=== PATIENT | male | born 1960 | race Caucasian/White ===

== ENCOUNTER 2016-07-30 07:32 | Day surgery (SDC) | payer OTHER ==
[2016-07-30] MEDS ORDERED: ceFAZolin 2 GM/50 ML 50 ML IV ONE (07:37)
[2016-07-30] MEDS ORDERED: LACTATED RINGERS 1,000 ML IV ONE ×2 (07:43→10:30)
[2016-07-30] MEDS ORDERED: MIDAZOLAM 2 MG/2 ML VIAL IVP ONE (09:00)
[2016-07-30] MEDS ORDERED: KETOROLAC 30 MG/ML VIAL IVP ONE (09:00)
[2016-07-30] MEDS ORDERED: PROPOFOL 200 MG/20 ML VIAL IVP ONE (09:00)
[2016-07-30] MEDS ORDERED: LIDOCAINE-MPF 2% 5 ML VIAL IM ONE (09:00)
[2016-07-30] MEDS ORDERED: ONDANSETRON 4 MG/2 ML VIAL IVP ONE (09:00)
[2016-07-30] MEDS ORDERED: DEXAMETHASONE 4 MG/ML VIAL IVP ONE (09:00)
[2016-07-30] MEDS ORDERED: fentaNYL 100 MCG/2 ML VIAL IVP ONE (09:00)
[2016-07-30] MEDS ORDERED: BUPIVACAINE 0.5% PF 30 ML VIAL SUBQ ONE ×3 (09:52→10:40)
[2016-07-30] MEDS ORDERED: oxyCOD/ACETAMIN 5 MG/325 MG TABLET PO ONE (11:49)
== END 2016-07-30 07:33 | disposition home or self-care (01) ==
PROC: 0VBF0ZZ Excision of Right Spermatic Cord, Open Approach (ICD-10-PCS; 2016-07-30)
PROC: 0YU50JZ Supplement Right Inguinal Region with Synthetic Substitute, Open Approach (ICD-10-PCS; principal; 2016-07-30 08:30)
DX: K40.91 Unilateral inguinal hernia, without obstruction or gangrene, recurrent (principal); D17.6 Benign lipomatous neoplasm of spermatic cord; Z87.891 Personal history of nicotine dependence; N52.9 Male erectile dysfunction, unspecified; Z82.49 Family history of ischemic heart disease and other diseases of the circulatory system; Z80.0 Family history of malignant neoplasm of digestive organs; Z83.3 Family history of diabetes mellitus
CPT/HCPCS: 49520; 55520; A9270; C1781; J0690; J7120

== ENCOUNTER 2016-09-30 14:28 | Outpatient (CLI) | payer OTHER | END 2016-09-30 14:29 | disposition home or self-care (01) | DX: M25.522 Pain in left elbow (principal) ==

== ENCOUNTER 2018-06-10 11:49 | Outpatient (CLI) | payer BC ==
--- NOTE | 2018-06-10 13:21 | XRAY Report ---
Reason: ANTERIOR KNEE PAIN,LT KNEE Procedure Date: 06/10/2018 Accession Number: [id number] / [id number] Procedure: XR - Knee 3 View LT CPT Code: FULL RESULT: EXAM: LEFT KNEE RADIOGRAPHY EXAM DATE: 06/10/2018 11:56 AM. CLINICAL HISTORY: Anterior knee pain, left knee. COMPARISON: None. TECHNIQUE: 3 views. FINDINGS: Bones: Normal. No fractures or bone lesions. Joints: Normal. No effusion. No subluxations. Soft Tissues: Normal. No soft tissue swelling. IMPRESSION: No fracture or dislocation. RADIA
== END 2018-06-10 11:50 | disposition home or self-care (01) ==
LOC: DI 11:49
PROVIDERS: ATTEND Internal Medicine
DX: M25.562 Pain in left knee (principal)

== ENCOUNTER 2019-06-24 16:40 | Outpatient (CLI) | payer BC ==
--- NOTE | 2019-06-25 21:22 | XRAY Report ---
Reason: INGUINAL PAIN, PERSONAL HISTORY OF NICOTINE DEPEND Procedure Date: 06/24/2019 Accession Number: [id number] / [id number] Procedure: XR - Chest 2 View X-Ray CPT Code: 95348 Final Report FULL RESULT: EXAM: CHEST RADIOGRAPHY EXAM DATE: 06/24/2019 04:55 PM. CLINICAL HISTORY: INGUINAL PAIN, PERSONAL HISTORY OF NICOTINE DEPEND. COMPARISON: 06/23/2013 10:20 AM. TECHNIQUE: 2 views. FINDINGS: Lungs/Pleura: No focal opacities evident. No pleural effusion. No pneumothorax. Normal volumes. Mediastinum: Heart and mediastinal contours are unremarkable. Other: DJD spine IMPRESSION: No active cardiopulmonary disease RADIA
--- NOTE | 2019-06-26 10:36 | Ultrasound Report ---
Reason: INGUINAL PAIN Procedure Date: 06/24/2019 Accession Number: [id number] / [id number] Procedure: US - Pelvic Limited or F/U CPT Code: Final Report FULL RESULT: EXAM: INGUINAL ULTRASOUND EXAM DATE: 06/24/2019 05:30 PM. CLINICAL HISTORY: INGUINAL PAIN. COMPARISON: None. TECHNIQUE: Real-time sonographic imaging of the inguinal canals and vascular structures, including color-flow, was performed by the auger operator. Multiple industrial relations representative static images were saved for review. FINDINGS: Hernia: None identified with or without Valsalva. Soft Tissues: Normal. No fluid collections or adenopathy. Other: None. IMPRESSION: Normal. No inguinal hernia evident. RADIA
== END 2019-06-24 16:41 | disposition home or self-care (01) ==
LOC: DI 16:40
PROVIDERS: ATTEND Registered Nurse
DX: R10.2 Pelvic and perineal pain (principal); Z87.891 Personal history of nicotine dependence
CPT/HCPCS: 71046; 76857

== ENCOUNTER 2019-12-15 09:51 | Emergency (ER) | payer BC, OTHER ==
--- NOTE | 2019-12-15 10:16 | ED Physician Documentation ---
PD HPI Fall - Stated complaint Stated Complaint: Fall/Trauma - Chief complaint Chief Complaint: Trauma Ch/Bk - History obtained from History obtained from: Patient - History of Present Illness Mechanism of injury: Slipped Fall distance: Standing position, 10 to 15ft Where injury occurred: Work Timing - onset: Today Injury(ies) location: Head, Chest, Back, Right Upper Extremity Quality of pain: Pain Associated symptoms: Neck pain. No: LOC, AMS, Amnesia, Seizures, Ear drainage, Nasal drainage, Weakness, Paresthesias, Dyspnea, Nausea / vomiting, Hematemesis, Abdominal distension Symptoms improve with: Rest, Position Worsens with: Movement, Palpation Contributing factors: No: Anticoagulated Similar symptoms before: Has not had sx before Recently seen: Not recently seen - Additional information Additional information: Previously well 59-year-old male was up on a roof today doing some pressure washing when he slipped off of the roof. He tried to grab the Skylight and the gutter. on the way down he aimed for a Media hill, landed on his feet, fell onto his buttocks and struck the back of his head. He did not have any loss of consciousness with this. He did have some pain in his buttocks over the tailbone and has injured his right fifth digit. He is not able to fully flex and extend it feels it might be dislocated or broken. He states that he does not feel he was otherwise injured significantly with a fall and he drove himself up to the hospital. Review of Systems Constitutional: denies: Fever Eyes: denies: Decreased vision Ears: denies: Ear pain Nose: denies: Congestion Throat: denies: Sore throat Cardiac: denies: Chest pain / pressure, Palpitations Respiratory: denies: Dyspnea : denies: Dysuria Skin: denies: Rash Musculoskeletal: reports: Neck pain, Back pain, Extremity pain Neurologic: reports: Head injury. denies: Generalized weakness, Focal weakness, Numbness, Headache, LOC PD PAST MEDICAL HISTORY - Past Medical History Cardiovascular: None Respiratory: None Endocrine/Autoimmune: None GI: Hemorrhoids : Kidney stones HEENT: None Psych: None Musculoskeletal: None Derm: None, Other - Past Surgical History General: Colonoscopy, Other - Present Medications Home Medications: Ambulatory Orders Medication Instructions Recorded Confirmed Multivitamin [Multivitamins] 1 each PO DAILY 12/11/15 12/15/19 Vardenafil HCl [Levitra] 10 mg PO PRN PRN 07/29/16 12/15/19 Hydrocodone/Acetaminophen 1 - 2 each PO Q6H PRN #14 tablet 12/15/19 [Hydrocodon-Acetaminophen 5-325] - Allergies Allergies/Adverse Reactions: Allergies Allergy/AdvReac Type Severity Reaction Status Date / Time No Known Drug Allergies Allergy Verified 12/15/19 10:30 PD ED PE NORMAL - Vitals Vital signs reviewed: Yes (hypertensive ) - General General: Alert and oriented X 3, No acute distress, Well developed/nourished - HEENT HEENT: Atraumatic, PERRL, EOMI, Other (I am not able to palpate a hematoma or tender area) - Neck Neck: Supple, no meningeal sign, Other (midline bony tenderness is mild mid cervical spine patient in collar) - Cardiac Cardiac: RRR, No murmur - Respiratory Respiratory: No respiratory distress, Clear bilaterally, Other (no chest wall tenderness. ) - Abdomen Abdomen: Normal bowel sounds, Soft, Non tender, Non distended, No organomegaly - Back Back: No CVA TTP, No spinal TTP, Other (There is no lumbar point tenderness there is tenderness to the sacrum and coccyx. ) - Derm Derm: Normal color, No rash - Extremities Extremities: No edema, No calf tenderness / cord, Other (There is a deformity to the right fifth digit consistent with a dislocation at the PIPThis is reduced and the patient still has some reduced range of motion to the fifth digit he is able flex and extend at the PIP. 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, No motor deficit, No sensory def icit, Normal speech Eye Opening: Spontaneous Motor: Obeys Commands Verbal: Oriented GCS Score: 15 - Psych Psych: Normal mood, Normal affect Results - Vitals Vitals: Vital Signs - 24 hr 12/15/19 12/15/19 12/15/19 09:56 10:09 11:12 Temperature 36.6 C Heart Rate 58 L 58 L 64 Respiratory 16 12 12 Rate Blood Pressure 139/95 H 144/106 H 144/106 H O2 Saturation 98 100 99 12/15/19 12/15/19 12/15/19 11:53 13:00 13:21 Temperature 37.1 C Heart Rate 63 65 68 Respiratory 14 16 12 Rate Blood Pressure 122/91 H 127/89 H 127/86 H O2 Saturation 100 97 97 Oxygen O2 Source Room air - Rads (name of study) fingers Radiology: Prelim report reviewed (Impression: Minimally displaced fracture of the volar base of the fifth middle phalanx.), EMP read indepedently, See rad report ct cervical spine Radiology: Prelim report reviewed (Impression: Cervical spine CT no acute fracture. Straightening may be positional. Multi-level degenerative changes.), EMP read indepedently, See rad report CT head Radiology: Prelim report reviewed (Impression: Parenchyma no intraparenchymal hemorrhage. No evidence of mass, midline shift, or CT findings of infarction. Martínez-white differentiation is distinct.), EMP read indepedently, See rad report Sacrum and coccyx Radiology: Prelim report reviewed (Impression: Limited exam no definite fracture identified), EMP read indepedently (I found the film to degraded to make a reading), See rad report Procedures - Laceration (location) right 5th Length in cm: 1 Wound type: Flap, Superficial, Clean Neurovascular status: Sensory intact, Motor intact, Vascular intact Wound Preparation: Irrigated copiously NS, Wound explored, To the base Skin layer closure: Dermabond (with sureclose) Other: Patient tolerated well, No complications, Dressing applied, Tetanus booster given Complexity: Simple PD MEDICAL DECISION MAKING - ED course Complexity details: reviewed old records, reviewed results, re-evaluated patient, considered differential, d/w patient ED course: Previous well 59-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 He has a dislocation of the right fifth proximal interphalangeal joint which is reduced on physical examination. He has a chip fracture from the volar surface of the middle phalange. He has a laceration overlying the area which is area which is superficial. This is not an open fracture. The patient's finger is repaired with the use of sure close and this is tolerated well. He is placed into an ulnar gutter splint and given tordal 30mg IV Departure - Departure Disposition: 01 Home, Self Care Clinical Impression: Cervical strain, acute Qualifiers: Encounter type: initial encounter Qualified Code(s): S16.1XXA - Strain of muscle, fascia and tendon at neck level, initial encounter Contusion of coccyx Qualifiers: Encounter type: initial encounter Qualified Code(s): S30.0XXA - Contusion of lo wer back and pelvis, initial encounter Finger fracture, right Qualifiers: Encounter type: initial encounter Finger: little finger Fracture type: closed Phalanx: middle Fracture alignment: nondisplaced Qualified Code(s): S62.656A - Nondisplaced fracture of middle phalanx of right little finger, initial encounter for closed fracture Finger laceration Qualifiers: Encounter type: initial encounter Finger: little finger Damage to nail status: without damage Foreign body presence: without foreign body Laterality: right Qualified Code(s): S61.216A - Laceration without foreign body of right little finger without damage to nail, initial encounter Condition: Stable Instructions: ED Contusion Sacrum Coccyx, ED Fx Finger Closed, ED Sprain Strain Neck, ED Laceration Sure Close Follow-Up: [facility] [place] [Provider Group] Prescriptions: Hydrocodone/Acetaminophen [Hydrocodon-Acetaminophen 5-325] 1 - 2 each PO Q6H PRN #14 tablet PRN Reason: pain Forms: Activity restrictions Discharge Date/Time: 12/15/19 13:40
--- NOTE | 2019-12-15 11:41 | XRAY Report ---
Reason: 5th digit injury Procedure Date: 12/15/2019 Accession Number: [id number] / [id number] Procedure: XR - Hand 3 View RT CPT Code: Final Report FULL RESULT: EXAM: RIGHT HAND RADIOGRAPHY EXAM DATE: 12/15/2019 10:46 AM. CLINICAL HISTORY: 5th digit injury. Fall from roof with fifth digit pain. COMPARISON: ELBOW 3 VIEW RT 09/30/2016 2:52 PM. TECHNIQUE: 3 views. FINDINGS: Bones: Minimally displaced fracture at the volar base of the fifth digit middle phalanx. Joints: No subluxation. Soft Tissues: Soft tissue swelling about fifth digit. IMPRESSION: Minimally displaced fracture of the volar base of fifth digit middle phalanx. RADIA
--- NOTE | 2019-12-15 11:44 | XRAY Report ---
Reason: 12ft fall coccyx pain Procedure Date: 12/15/2019 Accession Number: [id number] / [id number] Procedure: XR - Sacrum/Coccyx CPT Code: Final Report FULL RESULT: EXAM: SACRUM AND COCCYX RADIOGRAPHY EXAM DATE: 12/15/2019 10:46 AM. HISTORY: 12ft fall. Coccyx pain. COMPARISONS: None. TECHNIQUE: 3 views. FINDINGS: Evaluation significantly limited by underpenetration on lateral view. Alignment: Within study limitations, the sacrum and coccyx are normally aligned. Bones: No definite fracture or bone lesion. Joints: Unremarkable. The sacroiliac joints and visualized hips are unremarkable. Soft Tissues: Unremarkable. IMPRESSION: Limited exam. No definite fracture identified. RADIA
--- NOTE | 2019-12-15 12:02 | CT Report ---
Reason: 12ft fall hit head Procedure Date: 12/15/2019 Accession Number: [id number] / [id number] Procedure: CT - HEAD WO CPT Code: Final Report FULL RESULT: EXAM: CT HEAD. CT SCAN OF THE CERVICAL SPINE. EXAM DATE: 12/15/2019 10:28 AM. CLINICAL HISTORY: 12ft fall. Hit head. Head and neck pain. COMPARISON: CERVICAL SPINE WO 12/15/2019 10:22 AM. TECHNIQUE: Noncontrast axial sections through the head and cervical spine. Reformats: Sagittal and coronal of the head, coronal and sagittal of the cervical spine. In accordance with CT protocol optimization, one or more of the following dose reduction techniques were utilized for this exam: automated exposure control, adjustment of mA and/or KV based on patient size, or use of iterative reconstructive technique. FINDINGS CT HEAD: Parenchyma: No intraparenchymal hemorrhage. No evidence of mass, midline shift, or CT findings of infarction. Martínez-white differentiation is distinct. Extraaxial Spaces: Normal for age. No subdural or epidural collections identified. Ventricles: Normal in size and position. Sinuses and Orbits: Imaged paranasal sinuses, orbits, and mastoids show no significant abnormality. Bones: No evidence of fracture or calvarial defect. Other: None. FINDINGS CT CERVICAL SPINE: Alignment: Straightening of cervical spine may be positional. No scoliosis. No spondylolisthesis. Bones: No acute fracture or bone lesion. Vertebral body heights are preserved. Dens is intact. Multilevel degenerative changes, worst at the C5-C6 and C6-C7 levels with disk space narrowing, endplate sclerosis, osteophyte formation, and facet hypertrophy causing varying degrees of mild to moderate neural foraminal stenosis. Musculature: Normal. No fatty atrophy. Other: The paravertebral and prevertebral soft tissues are unremarkable. The lung apices are clear. IMPRESSION: Head CT: No CT evidence of acute intracranial pathology. Cervical Spine CT: No acute fracture. Straightening may be positional. Multilevel degenerative changes. RADIA
--- NOTE | 2019-12-15 12:02 | CT Report ---
Reason: 12 ft fall hit head neck pain Procedure Date: 12/15/2019 Accession Number: [id number] / [id number] Procedure: CT - CERVICAL SPINE WO CPT Code: Final Report FULL RESULT: EXAM: CT HEAD. CT SCAN OF THE CERVICAL SPINE. EXAM DATE: 12/15/2019 10:28 AM. CLINICAL HISTORY: 12ft fall. Hit head. Head and neck pain. COMPARISON: CERVICAL SPINE WO 12/15/2019 10:22 AM. TECHNIQUE: Noncontrast axial sections through the head and cervical spine. Reformats: Sagittal and coronal of the head, coronal and sagittal of the cervical spine. In accordance with CT protocol optimization, one or more of the following dose reduction techniques were utilized for this exam: automated exposure control, adjustment of mA and/or KV based on patient size, or use of iterative reconstructive technique. FINDINGS CT HEAD: Parenchyma: No intraparenchymal hemorrhage. No evidence of mass, midline shift, or CT findings of infarction. Martínez-white differentiation is distinct. Extraaxial Spaces: Normal for age. No subdural or epidural collections identified. Ventricles: Normal in size and position. Sinuses and Orbits: Imaged paranasal sinuses, orbits, and mastoids show no significant abnormality. Bones: No evidence of fracture or calvarial defect. Other: None. FINDINGS CT CERVICAL SPINE: Alignment: Straightening of cervical spine may be positional. No scoliosis. No spondylolisthesis. Bones: No acute fracture or bone lesion. Vertebral body heights are preserved. Dens is intact. Multilevel degenerative changes, worst at the C5-C6 and C6-C7 levels with disk space narrowing, endplate sclerosis, osteophyte formation, and facet hypertrophy causing varying degrees of mild to moderate neural foraminal stenosis. Musculature: Normal. No fatty atrophy. Other: The paravertebral and prevertebral soft tissues are unremarkable. The lung apices are clear. IMPRESSION: Head CT: No CT evidence of acute intracranial pathology. Cervical Spine CT: No acute fracture. Straightening may be positional. Multilevel degenerative changes. RADIA
[2019-12-15] MEDS ORDERED: KETOROLAC 30 MG/ML VIAL IVP STA (12:09)
[2019-12-15] MEDS ORDERED: TETANUS/DIPHTHERIA/PERTUSSIS 0.5 ML SYRINGE IM ONE (12:39)
[2019-12-15 13:22] VITALS: BP 127/86
== END 2019-12-15 13:40 | disposition home or self-care (01) ==
LOC: ED 09:51
DX: S62.656A Nondisplaced fracture of middle phalanx of right little finger, initial encounter for closed fracture (principal); S63.286A Dislocation of proximal interphalangeal joint of right little finger, initial encounter; S61.216A Laceration without foreign body of right little finger without damage to nail, initial encounter; S16.1XXA Strain of muscle, fascia and tendon at neck level, initial encounter; S30.0XXA Contusion of lower back and pelvis, initial encounter; S50.811A Abrasion of right forearm, initial encounter; W17.89XA Other fall from one level to another, initial encounter; Y93.H9 Activity, other involving exterior property and land maintenance, building and construction; Y92.008 Other place in unspecified non-institutional (private) residence as the place of occurrence of the external cause; Y99.0 Civilian activity done for income or pay; Z23 Encounter for immunization
CPT/HCPCS: 12001; 26770; 70450; 72125; 72220; 90471; 99284

== ENCOUNTER 2020-12-27 09:31 | Day surgery (SDC) | payer OTHER ==
[2020-12-27] MEDS ORDERED: LACTATED RINGERS 1,000 ML IV ONE ×2 (09:48→11:04)
[2020-12-27] MEDS ORDERED: MIDAZOLAM 2 MG/2 ML VIAL ONE ×4 (10:09→10:24)
[2020-12-27] MEDS ORDERED: fentaNYL 250 MCG/5 ML VIAL ONE (10:09)
[2020-12-27 10:45] VITALS: BP 109/75
== END 2020-12-27 09:32 | disposition home or self-care (01) ==
LOC: SDS 09:31
PROVIDERS: ATTEND Surgery
DX: Z12.11 Encounter for screening for malignant neoplasm of colon (principal); K64.8 Other hemorrhoids; K64.4 Residual hemorrhoidal skin tags; Z86.010 Personal history of colon polyps
CPT/HCPCS: 45378; J3010; J7120

== ENCOUNTER 2021-12-14 10:13 | Outpatient (CLI) | payer OTHER ==
[2021-12-14 15:49] LABS: BASOPHILS % (AUTO) 0.5 %; EOSINOPHILS # (AUTO) 0.2 10^3/uL (0.0-0.7); EOSINOPHILS % (AUTO) 2.7 %; HCT - HEMATOCRIT 44.9 % (42.0-52.0); HGB - HEMOGLOBIN 15.2 g/dL (14.0-18.0); LYMPHOCYTES # (AUTO) 2.1 10^3/uL (1.5-3.5); LYMPHOCYTES % (AUTO) 36.5 %; MEAN CORPUSCULAR HEMOGLOBIN 31.9 pg (27.0-31.0); MEAN CORPUSCULAR HGB CONC 33.9 g/dL (32.0-36.0); MEAN CORPUSCULAR VOLUME 94.1 fL (80.0-94.0); MEAN PLATELET VOLUME 10.6 fL (7.4-11.4); MONOCYTES # (AUTO) 0.7 10^3/uL (0.0-1.0); MONOCYTES % (AUTO) 11.3 %; NEUTROPHILS # (AUTO) 2.8 10^3/uL (1.5-6.6); NEUTROPHILS % (AUTO) 48.8 %; PLT - PLATELET COUNT 223 10^3/uL (130-450); RED BLOOD COUNT 4.77 10^6/uL (4.70-6.10); RED CELL DISTRIBUTION WIDTH 11.8 % (12.0-15.0); WHITE BLOOD COUNT 5.8 x10^3/uL (4.8-10.8)
[2021-12-14 16:23] LABS: ALBUMIN 4.2 g/dL (3.2-5.5); ALBUMIN/GLOBULIN RATIO 1.5 (1.0-2.2); ALKALINE PHOSPHATASE 69 IU/L (42-121); ALT ALANINE AMINOTRANSFERASE 30 IU/L (10-60); AST ASPARTATE AMINOTRANSFERASE 30 IU/L (10-42); BILIRUBIN,TOTAL 1.1 mg/dL (0.2-1.0); BUN - BLOOD UREA NITROGEN 21 mg/dL (6-20); CALCIUM 9.5 mg/dL (8.5-10.3); CARBON DIOXIDE - CO2 27 mmol/L (21-32); CHLORIDE 105 mmol/L (101-111); CHOL/HDL RATIO 4.7 (<5.0); CHOLESTEROL 213 mg/dL; CREATININE 0.8 mg/dL (0.6-1.2); GFR - MDRD 99 (>89); GLUCOSE 106 mg/dL (70-100); HDL CHOLESTEROL 45 mg/dL; LDL CHOLESTEROL,CALCULATED 141 mg/dL; LDL/HDL RATIO 3.1 (<3.6); POTASSIUM 3.9 mmol/L (3.5-5.0); SODIUM 141 mmol/L (135-145); TRIGLYCERIDES 136 mg/dL; VLDL CHOLESTEROL 27 mg/dL
== END 2021-12-14 10:14 | disposition home or self-care (01) ==
LOC: LAB.S 10:13
PROVIDERS: ATTEND Internal Medicine
DX: E78.5 Hyperlipidemia, unspecified (principal); Z79.899 Other long term (current) drug therapy
CPT/HCPCS: 36415; 80053; 80061; 83721; 85025